=== PATIENT | female | born 1940 | race Caucasian/White ===

== ENCOUNTER 2016-06-28 18:55 | Emergency (ER) | payer OTHER ==
[~2016-06-28] VITALS: Ht 165.1 cm; Wt 72.6 kg
[~2016-06-28 18:55] MED LIST: DOC100C PO; FURO40TA4 PO; LOVA40TA72 PO; METO25TA62 PO; PANT40TA2 PO; POT20T PO
[2016-06-28 20:52] LABS: Basophils # (auto) 0 uL; Basophils % (auto) 0.4 % (0.0-2.0); DEFINITIVE VIEW TRANSMISSION; Eosinophils # (auto) 0 uL; Eosinophils % (auto) 0.3 % (0.0-7.0); Hematocrit 32.4 % (36.0-46.0); Hemoglobin 10.5 g/dL (12.2-16.2); Lymphocytes # (auto) 0.9 uL; Lymphocytes % (auto) 10.7 % (10.0-50.0); Mean Corpuscular Hemoglobin 26.8 pg (28.0-32.0); Mean Corpuscular Hgb Conc. 32.3 g/dL (32.0-36.0); Mean Platelet Volume 8.2 fL (7.4-10.4); Monocytes # (auto) 0.7 uL; Neutrophils # (auto) 6.7 uL; Neutrophils % (auto) 80.6 % (37.0-80.0); Platelet Count (auto) 322 10^3/uL (140-450); Red Cell Distribution Width 16.6 % (11.6-16.0); White Blood Cell 8.3 10^3/uL (4.4-10.8)
[2016-06-28] MEDS ORDERED: ONDANSETRON HCL 4 MG/2 ML VIAL IV ONE (21:00)
[2016-06-28] MEDS ORDERED: cefTRIAXone 1GM/50ML D5W 50 ML IV ONE (21:00)
[2016-06-28] MEDS ORDERED: MORPHINE SULFATE 4 MG/ML SYRG IV ONE (21:00)
[2016-06-28] MEDS ORDERED: TETANUS-DIPTH-ACEL PERTUSSIS 0.5ML SYRG IM ONE (21:00)
[2016-06-28 21:05] LABS: Albumin 3.5 g/dL (3.4-5.0)
[2016-06-28 21:08] LABS: BUN/Creatinine Ratio 30.6
[2016-06-28 21:10] LABS: Bilirubin, Total 0.4 mg/dL (0.2-1.0)
[2016-06-28 21:13] LABS: INR 0.96 (0.9-1.15); Partial Thromboplastin Time 24.7 sec (22.64-33.71); Prothrombin Time 10.4 sec (9.37-12.3)
[2016-06-28] MEDS ORDERED: LIDOCAINE 1% HCL (LOCAL ANESTH.) INJ 20ML MDV ONE (23:44)
[2016-06-29] MEDS ORDERED: LIDOCAINE 1% HCL (LOCAL ANESTH.) INJ 20ML MDV IJ ONE
[2016-06-29 02:51] VITALS: BP 149/69
== END 2016-06-29 03:31 | disposition home or self-care (01) ==
LOC: EDUNIT# 18:55 → EDBD 18:55 → ER 19:04
DX: S81.812A Laceration without foreign body, left lower leg, initial encounter (principal); D64.9 Anemia, unspecified; I25.810 Atherosclerosis of coronary artery bypass graft(s) without angina pectoris; I11.0 Hypertensive heart disease with heart failure; I50.9 Heart failure, unspecified; I25.2 Old myocardial infarction; E11.9 Type 2 diabetes mellitus without complications; X58.XXXA Exposure to other specified factors, initial encounter; Y93.89 Activity, other specified; Y99.8 Other external cause status; Y92.89 Other specified places as the place of occurrence of the external cause; Z79.02 Long term (current) use of antithrombotics/antiplatelets; Z88.0 Allergy status to penicillin; Z88.1 Allergy status to other antibiotic agents; Z23 Encounter for immunization
CPT/HCPCS: 12001; 36415; 73590; 80053; 85025; 85610; 85730; 90471; 90715; 93005; 94761; 96365; 96375; 99285; J0696; J2001; J2270; J2405

== ENCOUNTER 2016-10-02 19:42 | Emergency (ER) | payer OTHER ==
[~2016-10-02] VITALS: Ht 160 cm; Wt 76.2 kg
[2016-10-03] MEDS ORDERED: cefTRIAXone 1GM/50ML D5W 50 ML IV ONE ×2
[2016-10-03] MEDS ORDERED: MORPHINE SULF INJ 2 MG/ML SYRINGE 1ML IV ONE
[2016-10-03 01:25] VITALS: BP 138/68
== END 2016-10-03 01:56 | disposition home or self-care (01) ==
LOC: ER 19:43
DX: S63.282A Dislocation of proximal interphalangeal joint of right middle finger, initial encounter (principal); I50.9 Heart failure, unspecified; I11.0 Hypertensive heart disease with heart failure; I25.10 Atherosclerotic heart disease of native coronary artery without angina pectoris; E11.9 Type 2 diabetes mellitus without complications; I25.2 Old myocardial infarction; Z95.1 Presence of aortocoronary bypass graft; Z96.89 Presence of other specified functional implants; Z88.0 Allergy status to penicillin; Z88.1 Allergy status to other antibiotic agents; Z79.899 Other long term (current) drug therapy; W18.00XA Striking against unspecified object with subsequent fall, initial encounter; Y93.01 Activity, walking, marching and hiking; Y99.8 Other external cause status; Y92.511 Restaurant or cafe as the place of occurrence of the external cause
CPT/HCPCS: 26770; 73140; 96365; 96375; 99284; J0696; J2270